=== PATIENT | male | born 1955 ===

== ENCOUNTER 2017-03-29 11:02 | Emergency (ER) | payer OTHER, MEDICAID ==
[2017-03-29 11:47] VITALS: BMI 38.3
[2017-03-29 11:52] VITALS: BP 187/130; PULSE 99; RESP 18; TEMP 97.5; O2SAT 96
--- NOTE | 2017-03-29 12:43 | ED PDOC ---
Arrival/HPI - General Chief Complaint: Suture/Staple Removal Time Seen by Provider: 03/29/17 11:55 Historian: Patient - History of Present Illness Narrative History of Present Illness (Text): 03/30/17 09:13 61yo male with PMHx of hypertension present to ED for suture removal from the left 4th finger. Patient denies redness, purulent discharge, pain to area. Past Medical History - Provider Review Nursing Documentation Reviewed: Yes - Infectious Disease Hx of Infectious Diseases: None - Cardiac Hx Cardiac Disorders: Yes Hx Hypertension: Yes - Pulmonary Hx Respiratory Disorders: No - Neurological Hx Neurological Disorder: No - HEENT Hx HEENT Disorder: Yes (EYE IRRITATION FROM DUST AT WORK) - Renal Hx Renal Disorder: No - Endocrine/Metabolic Hx Endocrine Disorders: No - Hematological/Oncological Hx Blood Disorders: No - Integumentary Hx Dermatological Disorder: No - Musculoskeletal/Rheumatological Hx Musculoskeletal Disorders: Yes (KNEE PAIN) - Gastrointestinal Hx Gastrointestinal Disorders: No - Genitourinary/Gynecological Hx Genitourinary Disorders: Yes Hx Prostate Problems: Yes (ELEVATED PSA/BPH) - Psychiatric Hx Psychophysiologic Disorder: No Hx Anxiety: No Hx Bipolar Disorder: No Hx Depression: No Hx Emotional Abuse: No Hx Hallucinations: No Hx Panic Disorder: No Hx Post Traumatic Stress Disorder: No Hx Psychosis: No Hx Physical Abuse: No Hx Schizophrenia: No Hx Sexual Abuse: No Hx Substance Use: No - Surgical History Hx Inguinal Hernia Repair: Yes (l) - Anesthesia Hx Anesthesia: Yes Hx Anesthesia Reactions: No Hx Malignant Hyperthermia: No - Suicidal Assessment Feels Threatened In Home Enviroment: No Family/Social History - Physician Review Nursing Documentation Reviewed: Yes Family/Social History: Unknown Family HX Smoking Status: Heavy Smoker > 10 Cigarettes Daily Hx Alcohol Use: Yes Hx Substance Use: No Hx Substance Use Treatment: No Allergies/Home Meds Allergies/Adverse Reactions: Allergies No Known Allergies Allergy (Verified 12/26/14 14:36) Home Medications: Home Meds Medication Instructions Recorded Confirmed Losartan/Hydrochlorothiazide 1 tab PO DAILY 03/29/17 03/29/17 [Losartan-Hctz 100-25 mg Tab] Review of Systems - Physician Review All systems were reviewed & negative as marked: Yes - Review of Systems Constitutional: Normal Eyes: Normal ENT: Normal Respiratory: Normal Cardiovascular: Normal Gastrointestinal: Normal Genitourinary Male: Normal Musculoskeletal: Normal Skin: Other (suture removal) Neurological: Normal Endocrine: Normal Hemo/Lymphatic: Normal Psychiatric: Normal Physical Exam Vital Signs Reviewed: Yes Vital Signs Temp Pulse Resp BP Pulse Ox 03/29/17 11:49 97.5 F L 99 H 18 187/130 H 96 Temperature: Afebrile Blood Pressure: Hypertensive Pulse: Regular Respiratory Rate: Normal Appearance: Positive for: Well-Appearing, Non-Toxic, Comfortable Pain Distress: None Mental Status: Positive for: Alert and Oriented X 3 - Systems Exam Head: Present: Atraumatic, Normocephalic Pupils: Present: PERRL Extroacular Muscles: Present: EOMI Conjunctiva: Present: Normal Mouth: Present: Moist Mucous Membranes Neck: Present: Normal Range of Motion Respiratory/Chest: Present: Clear to Auscultation, Good Air Exchange. No: Respiratory Distress, Accessory Muscle Use Cardiovascular: Present: Regular Rate and Rhythm, Normal S1, S2. No: Murmurs Abdomen: Present: Normal Bowel Sounds. No: Tenderness, Distention, Peritoneal Signs Back: Present: Normal Inspection Upper Extremity: Present: Normal Inspection. No: Cyanosis, Edema Lower Extremity: Present: Normal Inspection. No: Edema Neurological: Present: GCS=15, CN II-XII Intact, Speech Normal Skin: Present: Warm, Dry, Normal Color, Other (3sutures noted intact to left 4th distal finger. No erythema. No purulent discharge. No sign of infection noted). No: Rashes Psychiatric: Present: Alert, Oriented x 3, Normal Insight, Normal Concentration Medical Decision Making ED Course and Treatment: 03/30/17 09:15 Pt eloped from the ED before sutures could be removed and before re evaluation of his BP. Disposition/Present on Arrival - Present on Arrival Any Indicators Present on Arrival: No History of DVT/PE: No History of Uncontrolled Diabetes: No Urinary Catheter: No History of Decub. Ulcer: No History Surgical Site Infection Following: None - Disposition Have Diagnosis and Disposition been Completed?: Yes Diagnosis: Visit for suture removal Disposition: LEFT W/O TREATMENT - ER ONLY Disposition Time: 12:45 Condition: GOOD Discharge Instructions (ExitCare): Stitches Removal (ED) Additional Instructions: Follow up with your Doctor Return to ED for any new symptom Referrals: Marshall Robles APN [Primary Care Provider] - Follow up with primary Forms: [employer] (Zambian)
== END 2017-03-29 12:30 | disposition left against medical advice (07) ==
LOC: ED 11:02
DX: Z48.02 Encounter for removal of sutures (principal)

== ENCOUNTER 2017-08-17 09:29 | Inpatient (IN) | payer MEDICAID, OTHER ==
[2017-08-17 09:40] VITALS: BMI 40.9
[2017-08-17] MEDS ORDERED: Multivitamin (MVI) 10 ML, Thiamine 100 MG, Folic Acid 1 MG in Sodium Chloride 0.9% 1,00... IV ONE (09:47)
--- NOTE | 2017-08-17 09:58 | ED PDOC ---
Arrival/HPI - General Chief Complaint: Alcohol Ingestion Time Seen by Provider: 08/17/17 09:46 Historian: Patient, Spouse, Family (Niece) - History of Present Illness Narrative History of Present Illness (Text): 08/17/17 09:49 61 year old Peruvian-speaking male, with past medical history of hypertension ( noncompliant with medication) and psychiatric history of alcohol abuse, anxiety and depression, presents to the Emergency department complaining of nausea, vomiting, stomach burning and hematochezia since yesterday. Lorne at bedside is translating for patient. As per nisin, patient has been drinking alcohol since and is unable to stop. Niece states patient had similar prior episodes of alcohol abuse which followed months of sobriety until alcohol consumption again. As translated by lorne, patient informs bright red blood in his stool and increased somnolence. Upon questioning informs patient feels sick and shaky but no hallucination or DT when withdrawing alcohol. Patient currently denies any other somatic complaints. Patient denies any fever, chills, chest pain, shortness of breath, substance abuse or any other complaints. Patient presents to the Emergency department for medical evaluation. PMD: NO PMD (Visits [facility] in [place]) Time/Duration: < week Symptom Onset: Gradual Symptom Course: Unchanged Quality: Burning Activities at Onset: Light Context: Other (Drinking Alcohol) Past Medical History - Provider Review Nursing Documentation Reviewed: Yes - Infectious Disease Hx of Infectious Diseases: None - Cardiac Hx Cardiac Disorders: Yes Hx Hypertension: Yes - Pulmonary Hx Respiratory Disorders: No - Neurological Hx Neurological Disorder: No - HEENT Hx HEENT Disorder: Yes (EYE IRRITATION FROM DUST AT WORK) - Renal Hx Renal Disorder: No - Endocrine/Metabolic Hx Endocrine Disorders: No - Hematological/Oncological Hx Blood Disorders: No - Integumentary Hx Dermatological Disorder: No - Musculoskeletal/Rheumatological Hx Musculoskeletal Disorders: Yes (KNEE PAIN) - Gastrointestinal Hx Gastrointestinal Disorders: No - Genitourinary/Gynecological Hx Genitourinary Disorders: Yes Hx Prostate Problems: Yes (ELEVATED PSA/BPH) - Psychiatric Hx Psychophysiologic Disorder: No Hx Anxiety: No Hx Bipolar Disorder: No Hx Depression: No Hx Emotional Abuse: No Hx Hallucinations: No Hx Panic Disorder: No Hx Post Traumatic Stress Disorder: No Hx Psychosis: No Hx Physical Abuse: No Hx Schizophrenia: No Hx Sexual Abuse: No Hx Substance Use: No - Surgical History Hx Inguinal Hernia Repair: Yes (l) - Anesthesia Hx Anesthesia: Yes Hx Anesthesia Reactions: No Hx Malignant Hyperthermia: No - Suicidal Assessment Feels Threatened In Home Enviroment: No Family/Social History - Physician Review Nursing Documentation Reviewed: Yes Family/Social History: No Known Family HX Smoking Status: Heavy Smoker > 10 Cigarettes Daily Hx Alcohol Use: Yes Hx Substance Use: No Hx Substance Use Treatment: No Allergies/Home Meds Allergies/Adverse Reactions: Allergies No Known Allergies Allergy (Verified 12/26/14 14:36) Home Medications: Home Meds Medication Instructions Recorded Confirmed Losartan/Hydrochlorothiazide 1 tab PO DAILY 03/29/17 08/17/17 [Losartan-Hctz 100-25 mg Tab] Review of Systems - Physician Review All systems were reviewed & negative as marked: Yes - Review of Systems Constitutional: Normal. absent: Fevers Eyes: Normal ENT: Normal Respiratory: Normal. absent: SOB Cardiovascular: Normal. absent: Chest Pain Gastrointestinal: Abdominal Pain, Nausea, Vomiting, Hematochezia, Hematemesis Genitourinary Male: Normal Musculoskeletal: Normal Skin: Normal Neurological: Other (Intoxicated) Endocrine: Normal Hemo/Lymphatic: Normal Psychiatric: Anxiety, Depression Physical Exam Vital Signs Reviewed: Yes Vital Signs Temp Pulse Resp BP Pulse Ox 08/17/17 11:24 86 18 148/94 H 98 08/17/17 09:40 98.3 F 98 H 19 152/112 H 98 Temperature: Afebrile Blood Pressure: Hypertensive Pulse: Tachycardic Respiratory Rate: Normal Appearance: Positive for: Other (Strong Alcohol smell at breath. ) Pain Distress: None Mental Status: Positive for: Alert and Oriented X 3, other - Systems Exam Head: Present: Atraumatic, Normocephalic Pupils: Present: PERRL Extroacular Muscles: Present: EOMI Conjunctiva: Present: Normal Respiratory/Chest: Present: Clear to Auscultation, Good Air Exchange. No: Respiratory Distress, Accessory Muscle Use Cardiovascular: Present: Regular Rate and Rhythm, Normal S1, S2. No: Murmurs Abdomen: Present: Tenderness, Distention. No: Peritoneal Signs Upper Extremity: Present: Normal Inspection. No: Cyanosis, Edema Lower Extremity: Present: Normal Inspection. No: Edema Neurological: Present: GCS=15, CN II-XII Intact, Speech Normal Skin: Present: Warm, Dry, Normal Color. No: Rashes Psychiatric: Present: Alert, Oriented x 3, Intoxicated Medical Decision Making ED Course and Treatment: 08/17/17 9:47 Impression: 61 year old male presents to the Emergency department for nausea, hematemesis, hematochezia, stomach burning and alcohol intoxication. Plan: -- Blood Type and Screen -- Labs -- IV Fluids -- Urinalysis -- Reassess and disposition Progress Notes: 08/17/17 12:35 EKG: Ordered, reviewed, and independently interpreted the EKG. Rate : 83 BPM Rhythm : NSR Interpretation : LVH - Lab Interpretations Lab Results: 08/17/17 09:50 08/17/17 09:50 Lab Results 08/17/17 10:20: Urine Opiates Screen Negative, Urine Methadone Screen Negative, Ur Barbiturates Screen Negative, Ur Phencyclidine Scrn Negative, Ur Amphetamines Screen Negative, U Benzodiazepines Scrn Negative, U Oth Cocaine Metabols Negative, U Cannabinoids Screen Negative 08/17/17 10:20: Urine Color Yellow, Urine Appearance Clear, Urine pH 8.0, Ur Specific [place] 1.015, Urine Protein 30 H, Urine Glucose (UA) Negative, Urine Ketones Negative, Urine Blood Negative, Urine Nitrate Negative, Urine Bilirubin Negative, Urine Urobilinogen 1.0 H, Ur Leukocyte Esterase Negative, Urine RBC 0 - 2, Urine WBC 0 - 2, Ur Epithelial Cells None, Amorphous Sediment Few, Urine Bacteria Many, Urine Other Uyeast 08/17/17 09:50: Blood Type O POSITIVE, Antibody Screen Negative, BBK History Checked No verified bt 08/17/17 09:50: Alcohol, Quantitative 228 H 08/17/17 09:50: Sodium 145, Potassium 3.9, Chloride 104, Carbon Dioxide 26, Anion Gap 19, BUN 14, Creatinine 0.7 L, Est GFR ( Amer) > 60, Est GFR ( Non-Af Amer) > 60, Random Glucose 134 H, Calcium 7.9 L, Total Bilirubin 0.4, AST 40, ALT 41, Alkaline Phosphatase 65, Lactate Dehydrogenase 619, Total Creatine Kinase 206, Troponin I < 0.01 D, NT-Pro-B Natriuret Pep 141, Total Protein 6.4, Albumin 3.8, Globulin 2.6, Albumin/Globulin Ratio 1.5, Lipase 34 08/17/17 09:50: PT 12.8 H, INR 1.11 H 08/17/17 09:50: WBC 6.8 D, RBC 5.03, Hgb 14.8, Hct 43.8, MCV 87.1, MCH 29.4, MCHC 33.8, RDW 13.5, Plt Count 239, MPV 8.9, Gran % 67.9, Lymph % (Auto) 23.5, [place] % (Auto) 6.1 H, Eos % (Auto) 1.6, Baso % (Auto) 0.9, Gran # 4.64, Lymph # ( Auto) 1.6, [place] # (Auto) 0.4, Eos # (Auto) 0.1, Baso # (Auto) 0.06 - EKG Interpretation Interpreted by ED Physician: Yes Type: 12 lead EKG - Medication Orders Current Medication Orders: Enoxaparin Sodium (Lovenox) 40 mg SC DAILY DIANA PRN Reason: Protocol Folic Acid (Folic Acid) [address] [facility] Multivitamins/Vitamin C 10 ml/Thiamine HCl 100 mg/ Folic Acid 1 mg/ Sodium Chloride 1,011.2 mls @ 100 mls/hr IV .Q10H7M DIANA Lorazepam (Ativan) 1 mg PO Q4H PRN PRN Reason: Symptoms of alcohol withdrawl Multivitamins/Minerals (Therapeutic-M Tab) [address] [facility] Ondansetron HCl (Zofran Inj) 4 mg IVP Q6 PRN PRN Reason: Nausea/Vomiting Pantoprazole Sodium (Protonix Inj) [address] [facility] Thiamine HCl (Vitamin B1 Tab) [address] [facility] Discontinued Medications Al Hydrox/Mg Hydrox/Simethicone (Maalox Plus 30 Ml) 30 ml PO STAT STA Stop: 08/17/17 11:10 Last Admin: 08/17/17 12:11 Dose: 30 ml Belladonna/Phenobarbital ( Elixir) 5 ml PO STAT STA Stop: 08/17/17 11:10 Last Admin: 08/17/17 12:11 Dose: 5 ml Famotidine (Pepcid) 40 mg IVP STAT STA Stop: 08/17/17 11:26 Last Admin: 08/17/17 12:12 Dose: 40 mg IVP Administration Document 08/17/17 12:12 SS (Rec: 08/17/17 12:12 SS [id number]) Charges for Administration # of IVP Administrations 1 Multivitamins/Vitamin C 10 ml/Thiamine HCl 100 mg/ Folic Acid 1 mg/ Sodium Chloride 1,011.2 mls @ 1,000 mls/hr IV .Q1H1M ONE Stop: 08/17/17 10:47 Last Admin: 08/17/17 10:24 Dose: 1,000 mls/hr eMAR Start Stop Document 08/17/17 10:24 GMD (Rec: 08/17/17 10:25 GMD [id number]) Intravenous Solution Start Date 08/17/17 Start Time 10:24 End Date 08/17/17 End time 11:25 Total Infusion Time 61 Lidocaine HCl (Lidocaine 2% Viscous) 15 ml MM STAT STA Stop: 08/17/17 11:10 Last Admin: 08/17/17 12:11 Dose: 15 ml Lorazepam (Ativan) 2 mg IVP ONCE ONE PRN Reason: Protocol Stop: 08/17/17 11:26 Last Admin: 08/17/17 12:12 Dose: 2 mg IVP Administration Document 08/17/17 12:12 SS (Rec: 08/17/17 12:12 SS [id number]) Charges for Administration # of IVP Administrations 1 Pantoprazole Sodium (Protonix Inj) 80 mg IVP STAT STA Stop: 08/17/17 11:26 Last Admin: 08/17/17 12:11 Dose: 80 mg IVP Administration Document 08/17/17 12:11 SS (Rec: 08/17/17 12:11 SS [id number]) Charges for Administration # of IVP Administrations 1 - Scribe Statement The provider has reviewed the documentation as recorded by the Scribe Balbir Adams. All medical record entries made by the Scribe were at my direction and personally dictated by me. I have reviewed the chart and agree that the record accurately reflects my personal performance of the history, physical exam, medical decision making, and the department course for this patient. I have also personally directed, reviewed, and agree with the discharge instructions and disposition. Disposition/Present on Arrival - Present on Arrival Any Indicators Present on Arrival: No History of DVT/PE: No History of Uncontrolled Diabetes: No Urinary Catheter: No History of Decub. Ulcer: No History Surgical Site Infection Following: None - Disposition Have Diagnosis and Disposition been Completed?: Yes Diagnosis: Alcohol intoxication, Upper GI bleeding Disposition: HOSPITALIZED Disposition Time: 11:35 Patient Plan: Admission Patient Problems: Current Active Problems Problem Status Onset Alcohol intoxication Acute Upper GI bleeding Acute Condition: FAIR
[2017-08-17 10:22] LABS: BASO # 0.06 K/mm3 (0.0-2.0); BASO % 0.9 % (0.0-3.0); EOS # 0.1 (0.0-0.7); EOS % 1.6 % (1.5-5.0); GRAN # 4.64 (1.4-6.5); GRAN % 67.9 % (50.0-68.0); HEMOGLOBIN 14.8 g/dL (14.0-18.0); LYMPH # 1.6 (1.2-3.4); LYMPH % 23.5 % (22.0-35.0); MEAN CELL VOLUME 87.1 fl (80.0-105.0); MEAN CORPUSCULAR HEMOGLOBIN 29.4 pg (25.0-35.0); MEAN CORPUSCULAR HGB CONC 33.8 g/dl (31.0-37.0); MEAN PLATELET VOLUME 8.9 fl (7.0-11.0); MONO # 0.4 (0.1-0.6); MONO % 6.1 % (1.0-6.0); RBC 5.03 10^6/uL (3.5-6.1); RED CELL DISTRIBUTION WIDTH 13.5 % (11.5-14.5); WHITE BLOOD COUNT 6.8 10^3/ul (4.5-11.0)
[2017-08-17 10:29] LABS: INR 1.11 (0.93-1.08); PROTHROMBIN TIME 12.8 SECONDS (9.4-12.5)
[2017-08-17 10:30] LABS: ALB/GLOB RATIO 1.5 (1.1-1.8); ALBUMIN 3.8 g/dL (3.0-4.8); ALT/SGPT 41 U/L (7-56); AST/SGOT 40 U/L (17-59); BLOOD UREA NITROGEN 14 mg/dL (7-21); CALCIUM 7.9 mg/dL (8.4-10.5); GFR AFRICAN-AMERICAN > 60; GFR NON-AFRICAN AMERICAN > 60; LIPASE 34 U/L (23-300)
[2017-08-17 10:40] LABS: B-TYPE NATRIURETIC PEPTIDE 141 pg/mL (0-450); TROPONIN I < 0.01 ng/mL
[2017-08-17 10:50] LABS: URINE BILIRUBIN NEGATIVE (NEGATIVE); URINE BLOOD NEGATIVE (NEGATIVE); URINE GLUCOSE (UA) NEGATIVE (NEGATIVE); URINE LEUKOCYTE ESTERASE NEGATIVE Leu/uL (NEGATIVE); URINE PROTEIN 30 mg/dL (<30 mg/dL)
[2017-08-17 10:54] LABS: URINE APPEARANCE CLEAR (CLEAR); URINE COLOR YELLOW (YELLOW)
[2017-08-17 11:01] LABS: URINE BACTERIA MANY (NEG); URINE RBC 0 - 2 /hpf (0-2); URINE WBC 0 - 2 /hpf (0-6)
[2017-08-17 11:02] LABS: URINE AMORPHOUS SEDIMENT FEW
[2017-08-17 11:04] LABS: BARBITURATES, UR NEGATIVE (NEGATIVE); BENZODIAZEPINES, UR NEGATIVE (NEGATIVE); OPIATES, UR NEGATIVE (NEGATIVE); PHENCYCLIDINE, UR NEGATIVE (NEGATIVE)
[2017-08-17] MEDS ORDERED: Alum-Mag Hydrox-Simethicone Susp (30 mL) PO STA (11:09)
[2017-08-17] MEDS ORDERED: Atrop/Hyosc/Scopal/PB Elixir (120 ml) PO STA (11:09)
--- NOTE | 2017-08-17 12:26 | CP.PCM.HP ---
<KavithaHuey caceres - Last Filed: 08/17/17 14:09> History of Present Illness - History of Present Illness History of Present Illness: Medicine H&P for Dr. Arana cc: alcohol intoxication 61 year old Turkmen-speaking male with past medical history of HTN, history of alcohol abuse, anxiety/depression and noncompliance presents to the [facility] for alcohol intoxication. Patient is reporting nausea/vomiting, diarrhea, and abdominal pain since yesterday. He reports that he has been drinking alcohol since . Patient had similar episodes of alcohol abuse in the past. He has alternated between months of sobriety and episodes of alcohol consumption. He states that he had one occurrence of bright red blood in his stool. He also reports increased somnolence. Denies tremors and hallucinations. Patient currently rates pain as moderate. He describes it as constant burning in epigastrium. Denies any alleviating or aggravating factors. Patient denies recent illness or sick contacts. Admits to fever/chills, hematochezia, dizziness /lightheadedness, vertigo. Denies chest pain, SOB, palpitations, constipation, urinary symptoms and incontinence. PMD: [facility] PMH: HTN, history of alcohol abuse, anxiety/depression, noncompliance, BPH Meds: Name unknown but takes HTN med Allergy: NKDA PSH: umbilical hernia repair, Left inguinal hernia repair FH: non-contributory Social: current smoker - 1 pack/day for years, heavy EtOH binge drinking minimum of 12 beers, denies illicit drug drug Present on Admission - Present on Admission Any Indicators Present on Admission: No History of DVT/PE: No History of Uncontrolled Diabetes: No Urinary Catheter: No Decubitus Ulcer Present: No History Surgical Site Infection Following: None Review of Systems - Review of Systems All systems: reviewed and no additional remarkable complaints except (as per HPI ) Past Patient History - Infectious Disease Hx of Infectious Diseases: None - Past Medical History & Family History Past Medical History?: Yes - Past Social History Smoking Status: Heavy Smoker > 10 Cigarettes Daily - CARDIAC Hx Cardiac Disorders: Yes Hx Hypertension: Yes - PULMONARY Hx Respiratory Disorders: No - NEUROLOGICAL Hx Neurological Disorder: No - HEENT Hx HEENT Problems: Yes (EYE IRRITATION FROM DUST AT WORK) - RENAL Hx Chronic Kidney Disease: No - ENDOCRINE/METABOLIC Hx Endocrine Disorders: No - HEMATOLOGICAL/ONCOLOGICAL Hx Blood Disorders: No - INTEGUMENTARY Hx Dermatological Problems: No - MUSCULOSKELETAL/RHEUMATOLOGICAL Hx Musculoskeletal Disorders: Yes (KNEE PAIN) - GASTROINTESTINAL Hx Gastrointestinal Disorders: No - GENITOURINARY/GYNECOLOGICAL Hx Genitourinary Disorders: Yes Hx Prostate Problems: Yes (ELEVATED PSA/BPH) - PSYCHIATRIC Hx Psychophysiologic Disorder: No Hx Anxiety: No Hx Bipolar Disorder: No Hx Depression: No Hx Emotional Abuse: No Hx Hallucinations: No Hx Panic Symptoms: No Hx Post Traumatic Stress Disorder: No Hx Psychosis: No Hx Physical Abuse: No Hx Schizophrenia: No Hx Sexual Abuse: No Hx Substance Use: No - SURGICAL HISTORY Hx Surgeries: Yes Hx Herniorrhaphy: Yes (BILATERAL ING.HERNIORRAPHY) - ANESTHESIA Hx Anesthesia: Yes Hx Anesthesia Reactions: No Hx Malignant Hyperthermia: No Meds Allergies/Adverse Reactions: Allergies Allergy/AdvReac Type Severity Reaction Status Date / Time No Known Allergies Allergy Verified 12/26/14 14:36 Physical Exam - Constitutional Appears: Other (lethargic) - Head Exam Head Exam: ATRAUMATIC, NORMOCEPHALIC - Eye Exam Eye Exam: EOMI, Normal appearance Pupil Exam: PERRL - ENT Exam ENT Exam: Mucous Membranes Dry - Neck Exam Neck exam: Positive for: Normal Inspection - Respiratory Exam Respiratory Exam: NORMAL BREATHING PATTERN - Cardiovascular Exam Cardiovascular Exam: REGULAR RHYTHM, +S1, +S2 - GI/Abdominal Exam GI & Abdominal Exam: Normal Bowel Sounds, Soft, Tenderness (epigastric). absent : Distended, Firm, Guarding, Hernia, Rebound, Rigid - Extremities Exam Extremities exam: Positive for: normal capillary refill, pedal pulses present. Negative for: calf tenderness - Back Exam Back exam: absent: CVA tenderness (L), CVA tenderness (R) - Neurological Exam Neurological exam: Alert - Psychiatric Exam Psychiatric exam: Flat Affect - Skin Skin Exam: Dry, Intact, Normal Color, Warm Results - Vital Signs Recent Vital Signs: Last Vital Signs Temp 98.3 F 08/17/17 09:40 Pulse 86 08/17/17 11:24 Resp 18 08/17/17 11:24 BP 148/94 H 08/17/17 11:24 Pulse Ox 98 08/17/17 11:24 - Labs Result Diagrams: 08/17/17 09:50 08/17/17 09:50 Assessment & Plan - Assessment and Plan (Free Text) Assessment: 61 year old Turkmen-speaking male with past medical history of HTN, history of alcohol abuse, anxiety/depression and noncompliance presents to the [facility] for alcohol intoxication. Plan: 1. Alcohol intoxication/withdrawal -Remote telemetry -CIWA protocol -Aspiration protocol -Seizure protocol -Neurochecks -Banana bag 100 cc/hr -Ativan 2 mg IVP Q4H PRN -Intake and Output -Folic acid -Thiamine -MVM 2. HTN Monitor BP will start med if persistently high 3. Abdominal pain gastritis vs PUD Protonix 40 mg Q12H Serial abd exams Monitor bowel function 4. Hematochezia stool occult test Protonix Monitor 5. Prophylactic Measure Protonix Lovenox CLD Discussed with Dr. Sumit Kaplan PGY1 <Santo Arana - Last Filed: 08/17/17 16:35> Results - Vital Signs Recent Vital Signs: Last Vital Signs Temp 98.3 F 08/17/17 12:35 Pulse 79 08/17/17 12:56 Resp 18 08/17/17 12:56 BP 145/92 H 08/17/17 12:56 Pulse Ox 98 08/17/17 12:56 - Labs Result Diagrams: 08/17/17 09:50 08/17/17 09:50 Labs: Laboratory Results - last 24 hr 08/17/17 12:30 Blood Type Confirm O POSITIVE Attending/Attestation - Attestation I have personally seen and examined this patient.: Yes I have fully participated in the care of the patient.: Yes I have reviewed all pertinent clinical information: Yes Notes (Text): Patient seen and examined Agree with above Patient admitted for etoh intoxication c/o abdominal pain most likely attributed to etoh gastritits IVF hydration with bananabag infusion, Monitor for withdrawal symptoms, CIWA protocol Questionable hematochezia, will send stool for occult blood. Start Protonix Clear liquids - advance as tolerated Sister at bedside reports pt drinks more than he says he does.
[2017-08-17] MEDS ORDERED: Multivitamin (MVI) 10 ML, Thiamine 100 MG, Folic Acid 1 MG in Sodium Chloride 0.9% 1,00... IV SCH (12:30)
[2017-08-17] MEDS ORDERED: Enoxaparin 40 mg Syringe SC SCH (12:30)
[2017-08-17] MEDS ORDERED: Pneumococcal 23-Valent Vaccine IM ONE (13:05)
[2017-08-17 17:56] VITALS: RESP 20
[2017-08-18 06:46] LABS: BASO # 0.04 K/mm3 (0.0-2.0); BASO % 0.4 % (0.0-3.0); EOS # 0.4 (0.0-0.7); EOS % 3.6 % (1.5-5.0); GRAN # 6.94 (1.4-6.5); GRAN % 69.9 % (50.0-68.0); HEMOGLOBIN 15.5 g/dL (14.0-18.0); LYMPH # 1.8 (1.2-3.4); LYMPH % 18.4 % (22.0-35.0); MEAN CORPUSCULAR HEMOGLOBIN 29.6 pg (25.0-35.0); MEAN PLATELET VOLUME 9.3 fl (7.0-11.0); MONO # 0.8 (0.1-0.6); MONO % 7.7 % (1.0-6.0); RBC 5.24 10^6/uL (3.5-6.1); RED CELL DISTRIBUTION WIDTH 13.3 % (11.5-14.5); WHITE BLOOD COUNT 9.9 10^3/ul (4.5-11.0)
[2017-08-18 07:12] LABS: PROTHROMBIN TIME 11.8 SECONDS (9.4-12.5)
[2017-08-18 07:13] LABS: INR 1.03 (0.93-1.08); PARTIAL THROMBOPLASTIN TIME 25.4 Seconds (25.1-36.5)
[2017-08-18 07:28] LABS: ALB/GLOB RATIO 1.5 (1.1-1.8); ALT/SGPT 56 U/L (7-56); AST/SGOT 55 U/L (17-59); BLOOD UREA NITROGEN 12 mg/dL (7-21); CALCIUM 8.3 mg/dL (8.4-10.5); GFR AFRICAN-AMERICAN > 60; GFR NON-AFRICAN AMERICAN > 60
[2017-08-18] MEDS ORDERED: Multivitamin (MVI) 10 ML, Thiamine 100 MG, Folic Acid 1 MG in Sodium Chloride 0.9% 1,00... IV SCH (08:43)
--- NOTE | 2017-08-18 09:20 | CARD ---
APPROVED REPORT EKG Measurement Heart [id number] <Conclusion> Normal sinus rhythm Minimal voltage criteria for LVH, may be normal variant
[2017-08-18] MEDS ORDERED: Multivitamin With Minerals Tab PO SCH (10:00)
--- NOTE | 2017-08-18 11:41 | CP.PCM.PN ---
<Huey Kaplan - Last Filed: 08/18/17 12:22> Subjective - Date & Time of Evaluation Date of Evaluation: 08/18/17 Time of Evaluation: 07:30 - Subjective Subjective: Medicine Note for Dr. Britton Patient seen and examined at bedside. No acute event overnight. Patient required ativan multiple times overnight due to [facility] protocol. Patient is diaphoretic this morning with mild tremors. He denies pain. Denies fever/chills and nausea/vomiting. Objective - Vital Signs/Intake and Output Vital Signs (last 24 hours): Temp Pulse Resp BP Pulse Ox 98.8 F 110 H 20 174/102 H 98 08/18/17 08:18 08/18/17 10:43 08/18/17 08:18 08/18/17 10:43 08/18/17 08:18 Intake and Output: 08/18/17 08/18/17 06:59 18:59 Intake Total 660 Output Total 775 Balance -115 - Medications Medications: Current Medications Chlordiazepoxide (Librium) 25 mg PO Q8 DIANA PRN Reason: Protocol Last Admin: 08/18/17 09:05 Dose: 25 mg Enoxaparin Sodium (Lovenox) 40 mg SC DAILY [facility] PRN Reason: Protocol Last Admin: 08/18/17 09:06 Dose: 40 mg Folic Acid (Folic Acid) 1 mg PO DAILY [facility] Last Admin: 08/18/17 09:06 Dose: 1 mg Lisinopril (Zestril) 10 mg PO DAILY [facility] Last Admin: 08/18/17 10:43 Dose: 10 mg Lorazepam (Ativan) 2 mg IVP Q4H PRN; Protocol PRN Reason: etoh withdrawal Last Admin: 08/18/17 06:31 Dose: 2 mg Losartan Potassium (Cozaar) 25 mg PO DAILY [facility] Last Admin: 08/18/17 09:05 Dose: 25 mg Multivitamins/Minerals (Therapeutic-M Tab) 1 tab PO DAILY [facility] Last Admin: 08/18/17 09:04 Dose: 1 tab Ondansetron HCl (Zofran Inj) 4 mg IVP Q6 PRN PRN Reason: Nausea/Vomiting Last Admin: 08/18/17 01:26 Dose: 4 mg Pantoprazole Sodium (Protonix Inj) 40 mg IVP BID [facility] Last Admin: 08/18/17 09:04 Dose: 40 mg Thiamine HCl (Vitamin B1 Tab) 100 mg PO DAILY DIANA Last Admin: 08/18/17 09:06 Dose: 100 mg - Labs Labs: 08/18/17 06:00 08/18/17 06:00 PT 11.8 SECONDS (9.4-12.5) 08/18/17 06:00 INR 1.03 (0.93-1.08) 08/18/17 06:00 APTT 25.4 Seconds (25.1-36.5) 08/18/17 06:00 - Constitutional Appears: No Acute Distress, Other (diaphoretic) - Head Exam Head Exam: ATRAUMATIC, NORMOCEPHALIC - Eye Exam Eye Exam: EOMI, Normal appearance Pupil Exam: PERRL - ENT Exam ENT Exam: Mucous Membranes Moist - Respiratory Exam Respiratory Exam: Clear to Ausculation Bilateral, NORMAL BREATHING PATTERN - Cardiovascular Exam Cardiovascular Exam: Tachycardia - GI/Abdominal Exam GI & Abdominal Exam: Soft, Normal Bowel Sounds. absent: Tenderness - Extremities Exam Extremities Exam: Normal Capillary Refill - Back Exam Back Exam: absent: CVA tenderness (L), CVA tenderness (R) - Neurological Exam Neurological Exam: Alert, Awake, Oriented x3 Additional comments: mild tremor - Psychiatric Exam Psychiatric exam: Normal Affect, Normal Mood - Skin Skin Exam: Diaphoretic, Intact, Warm Assessment and Plan - Assessment and Plan (Free Text) Assessment: 61 year old Ecuadorean-speaking male with past medical history of HTN, history of alcohol abuse, anxiety/depression and noncompliance presents to the [facility] for alcohol intoxication. Plan: 1. Alcohol intoxication/withdrawal -Remote telemetry -CIWA protocol -Aspiration protocol -Seizure protocol -Neurochecks -Banana bag 150 cc/hr -Librium 25 mg PO Q6H -Clonidine 0.1 Q6H PRN -Ativan 2 mg IVP Q4H PRN -Intake and Output -Folic acid -Thiamine -MVM 2. HTN Lisinopril 10mg PO daily Clonidine 0.1 Q6H PRN Monitor BP will start med if persistently high 3. Abdominal pain; Resolved gastritis vs PUD Protonix 40 mg Q12H Serial abd exams Monitor bowel function Lipase normal 4. Hematochezia stool occult test Protonix Monitor 5. Prophylactic Measure Protonix Lovenox CLD Discussed with Dr. Tobi Kaplan PGY1 <Cori Britton B - Last Filed: 08/18/17 16:21> Objective - Vital Signs/Intake and Output Vital Signs (last 24 hours): Temp Pulse Resp BP Pulse Ox 98.8 F 105 H 20 179/92 H 98 08/18/17 08:18 08/18/17 15:40 08/18/17 08:18 08/18/17 15:40 08/18/17 08:18 Intake and Output: 08/18/17 08/18/17 06:59 18:59 Intake Total 660 925 Output Total 775 Balance -115 925 - Medications Medications: Current Medications Chlordiazepoxide (Librium) 25 mg PO Q8 DIANA PRN Reason: Protocol Last Admin: 08/18/17 13:35 Dose: 25 mg Clonidine HCl (Catapres) 0.1 mg PO Q6H PRN PRN Reason: Systolic Blood Pressure Last Admin: 08/18/17 12:30 Dose: 0.1 mg Enoxaparin Sodium (Lovenox) 40 mg SC DAILY [facility] PRN Reason: Protocol Last Admin: 08/18/17 09:06 Dose: 40 mg Folic Acid (Folic Acid) 1 mg PO DAILY [facility] Last Admin: 08/18/17 09:06 Dose: 1 mg Lisinopril (Zestril) 10 mg PO DAILY [facility] Last Admin: 08/18/17 10:43 Dose: 10 mg Lorazepam (Ativan) 2 mg IVP Q4H PRN; Protocol PRN Reason: etoh withdrawal Last Admin: 08/18/17 11:46 Dose: 2 mg Losartan Potassium (Cozaar) 25 mg PO DAILY [facility] Last Admin: 08/18/17 09:05 Dose: 25 mg Multivitamins/Minerals (Therapeutic-M Tab) 1 tab PO DAILY [facility] Last Admin: 08/18/17 09:04 Dose: 1 tab Ondansetron HCl (Zofran Inj) 4 mg IVP Q6 PRN PRN Reason: Nausea/Vomiting Last Admin: 08/18/17 01:26 Dose: 4 mg Pantoprazole Sodium (Protonix Ec Tab) 40 mg PO BID [facility] Thiamine HCl (Vitamin B1 Tab) 100 mg PO DAILY [facility] Last Admin: 08/18/17 09:06 Dose: 100 mg - Labs Labs: 08/18/17 06:00 05/24/18 06:00 PT 11.8 SECONDS (9.4-12.5) 08/18/17 06:00 INR 1.03 (0.93-1.08) 08/18/17 06:00 APTT 25.4 Seconds (25.1-36.5) 08/18/17 06:00 Attending/Attestation - Attestation I have personally seen and examined this patient.: Yes I have fully participated in the care of the patient.: Yes I have reviewed all pertinent clinical information, including history, physical exam and plan: Yes Notes (Text): I have seen and examined the patient at bedside. Agree with the above note with the following additions/ exceptions: Briefly this is 61 year old Ecuadorean- speaking male with past medical history of HTN, history of alcohol abuse, anxiety/depression and noncompliance who came for management of alcohol intoxication. Continue CIWA protocol. Continue librium taper. Will closely monitor BP and electrolytes. Start clonidine prn.
[2017-08-18 17:04] VITALS: BP 151/95; PULSE 114; TEMP 98.9; O2SAT 95
[2017-08-18] MEDS ORDERED: Pantoprazole 40 mg EC Tab PO SCH (18:00)
--- NOTE | 2017-08-19 11:38 | CP.PCM.DIS ---
Provider - Provider Date of Admission: 08/17/17 11:36 Attending physician: Cori Britton MD Time Spent in preparation of Discharge (in minutes): 30 Hospital Course - Lab Results Lab Results: Most Recent Lab Values WBC 9.9 10^3/ul (4.5-11.0) D 08/18/17 06:00 RBC 5.24 10^6/uL (3.5-6.1) 08/18/17 06:00 Hgb 15.5 g/dL (14.0-18.0) 08/18/17 06:00 Hct 45.6 % (42.0-52.0) 08/18/17 06:00 MCV 87.0 fl (80.0-105.0) 08/18/17 06:00 MCH 29.6 pg (25.0-35.0) 08/18/17 06:00 MCHC 34.0 g/dl (31.0-37.0) 08/18/17 06:00 RDW 13.3 % (11.5-14.5) 08/18/17 06:00 Plt Count 240 10^3/uL (120.0-450.0) 08/18/17 06:00 MPV 9.3 fl (7.0-11.0) 08/18/17 06:00 Gran % 69.9 % (50.0-68.0) H 08/18/17 06:00 Lymph % (Auto) 18.4 % (22.0-35.0) L 08/18/17 06:00 [place] % (Auto) 7.7 % (1.0-6.0) H 08/18/17 06:00 Eos % (Auto) 3.6 % (1.5-5.0) 08/18/17 06:00 Baso % (Auto) 0.4 % (0.0-3.0) 08/18/17 06:00 Gran # 6.94 (1.4-6.5) H 08/18/17 06:00 Lymph # (Auto) 1.8 (1.2-3.4) 08/18/17 06:00 [place] # (Auto) 0.8 (0.1-0.6) H 08/18/17 06:00 Eos # (Auto) 0.4 (0.0-0.7) 08/18/17 06:00 Baso # (Auto) 0.04 K/mm3 (0.0-2.0) 08/18/17 06:00 PT 11.8 SECONDS (9.4-12.5) 08/18/17 06:00 INR 1.03 (0.93-1.08) 08/18/17 06:00 APTT 25.4 Seconds (25.1-36.5) 08/18/17 06:00 Sodium 142 mmol/L (132-148) 08/18/17 06:00 Potassium 4.0 mmol/L (3.6-5.0) 08/18/17 06:00 Chloride 104 mmol/L (98-107) 08/18/17 06:00 Carbon Dioxide 26 mmol/L (21-33) 08/18/17 06:00 Anion Gap 16 (10-20) 08/18/17 06:00 BUN 12 mg/dL (7-21) 08/18/17 06:00 Creatinine 0.8 mg/dl (0.8-1.5) 08/18/17 06:00 Est GFR ( Amer) > 60 08/18/17 06:00 Est GFR (Non-Af Amer) > 60 08/18/17 06:00 POC Glucose (mg/dL) 124 mg/dL (65-110) H 08/17/17 10:05 Random Glucose 98 mg/dL (70-110) 08/18/17 06:00 Calcium 8.3 mg/dL (8.4-10.5) L 08/18/17 06:00 Phosphorus 3.0 mg/dL (2.5-4.5) 08/18/17 06:00 Magnesium 2.2 mg/dL (1.7-2.2) 08/18/17 06:00 Total Bilirubin 1.0 mg/dL (0.2-1.3) 08/18/17 06:00 AST 55 U/L (17-59) 08/18/17 06:00 ALT 56 U/L (7-56) 08/18/17 06:00 Alkaline Phosphatase 74 U/L (38-126) 08/18/17 06:00 Lactate Dehydrogenase 619 U/L (333-699) 05/23/18 09:50 Total Creatine Kinase 206 U/L (35-230) 08/17/17 09:50 Troponin I < 0.01 ng/mL D 08/17/17 09:50 NT-Pro-B Natriuret Pep 141 pg/mL (0-450) 08/17/17 09:50 Total Protein 6.6 g/dL (5.8-8.3) 08/18/17 06:00 Albumin 4.0 g/dL (3.0-4.8) 08/18/17 06:00 Globulin 2.6 gm/dL 08/18/17 06:00 Albumin/Globulin Ratio 1.5 (1.1-1.8) 08/18/17 06:00 Lipase 34 U/L (23-300) 08/17/17 09:50 Urine Color Yellow (YELLOW) 08/17/17 10:20 Urine Appearance Clear (CLEAR) 08/17/17 10:20 Urine pH 8.0 (4.7-8.0) 08/17/17 10:20 Ur Specific [place] 1.015 (1.005-1.035) 08/17/17 10:20 Urine Protein 30 mg/dL (<30 mg/dL) H 08/17/17 10:20 Urine Glucose (UA) Negative mg/dL (NEGATIVE) 08/17/17 10:20 Urine Ketones Negative mg/dL (NEGATIVE) 08/17/17 10:20 Urine Blood Negative (NEGATIVE) 08/17/17 10:20 Urine Nitrate Negative (NEGATIVE) 08/17/17 10:20 Urine Bilirubin Negative (NEGATIVE) 08/17/17 10:20 Urine Urobilinogen 1.0 E.U./dL (<1 E.U./dL) H 08/17/17 10:20 Ur Leukocyte Esterase Negative Jose/uL (NEGATIVE) 08/17/17 10:20 Urine RBC 0 - 2 /hpf (0-2) 08/17/17 10:20 Urine WBC 0 - 2 /hpf (0-6) 08/17/17 10:20 Ur Epithelial Cells None /hpf (0-5) 08/17/17 10:20 Amorphous Sediment Few 08/17/17 10:20 Urine Bacteria Many (NEG) 08/17/17 10:20 Urine Other Uyeast 08/17/17 10:20 Urine Opiates Screen Negative (NEGATIVE) 08/17/17 10:20 Urine Methadone Screen Negative (NEGATIVE) 08/17/17 10:20 Ur Barbiturates Screen Negative (NEGATIVE) 08/17/17 10:20 Ur Phencyclidine Scrn Negative (NEGATIVE) 08/17/17 10:20 Ur Amphetamines Screen Negative (NEGATIVE) 08/17/17 10:20 U Benzodiazepines Scrn Negative (NEGATIVE) 08/17/17 10:20 U Oth Cocaine Metabols Negative (NEGATIVE) 08/17/17 10:20 U Cannabinoids Screen Negative (NEGATIVE) 08/17/17 10:20 Alcohol, Quantitative 228 mg/dL (0-10) H 08/17/17 09:50 Blood Type O POSITIVE 08/17/17 09:50 Blood Type Confirm O POSITIVE 08/17/17 12:30 Antibody Screen Negative 08/17/17 09:50 BBK History Checked No verified bt 08/17/17 09:50 - Hospital Course Hospital Course: Patient is a 61yo Hebrew-speaking male with history of hypertension, alcohol abuse, anxiety/depression that presented to [facility] with alcohol intoxication. On presentation he had reported nausea, non-bilious non-bloody vomiting, diarrhea and epigastric abdominal pain. He admitted to drinking excessive amounts of alcohol prior to his admission and had similar instances in the past. He reported that he would typically have months of sobriety with episodes of binge drinking in between. On admission, he was admitted to remote telemetry, started on CIWA protocol with seizure and aspiration precautions. He was given librium and ativan for signs/symptoms of alcohol withdrawal as well as treated for hypertension. He was also started on multivitamins, folic acid and thiamine. Lipase was within normal limits. Although improved since admission, he had symptoms of alcohol withdrawal and was advised to remain in the hospital for treatment of alcohol withdrawal. At approximately 7pm, patient reported that he wishes to leave. Despite attempts to dissuade him and explaining the risks/ benefits of leaving against medical advice, patient left [facility]. Physical exam: Please see note from 08/18/17 for physical examination Discharge Exam - Head Exam Head Exam: ATRAUMATIC, NORMOCEPHALIC Discharge Plan - Follow Up Plan Condition: FAIR Disposition: AGAINST MEDICAL ADVICE
[2017-08-20] MEDS ORDERED: Multivitamin (MVI) 10 ML, Thiamine 100 MG, Folic Acid 1 MG in Sodium Chloride 0.9% 1,00... IV ONE (17:55)
== END 2017-08-18 19:49 | disposition left against medical advice (07) | DRG 749 ==
LOC: ED 09:29 → ERH 11:36 → 3RSO 15:47
PROVIDERS: ADMIT Internal Medicine; ATTEND Hospitalist
DX: F10.129 Alcohol abuse with intoxication, unspecified (principal); K92.1 Melena; I10 Essential (primary) hypertension; N40.0 Benign prostatic hyperplasia without lower urinary tract symptoms; K29.20 Alcoholic gastritis without bleeding; K27.9 Peptic ulcer, site unspecified, unspecified as acute or chronic, without hemorrhage or perforation; F17.210 Nicotine dependence, cigarettes, uncomplicated; F32.9 Major depressive disorder, single episode, unspecified; F41.9 Anxiety disorder, unspecified; Y90.8 Blood alcohol level of 240 mg/100 ml or more; Z91.19 Patient's noncompliance with other medical treatment and regimen; Z91.14 Patient's other noncompliance with medication regimen

== ENCOUNTER 2017-08-21 09:40 | Emergency (ER) | payer OTHER ==
[2017-08-21 09:50] VITALS: BMI 40.6
--- NOTE | 2017-08-21 10:46 | ED PDOC ---
Arrival/HPI - General Chief Complaint: Abnormal Skin Integrity Time Seen by Provider: 08/21/17 10:42 Historian: Patient - History of Present Illness Narrative History of Present Illness (Text): 08/21/17 10:42 This 61 yo male presents to this ED requesting antibiotic for upper lip infection. Patient stated he tripped and hit his mouth again his bathroom sink x 3 days ago. Patient noted inner upper lip laceration. Patient denies FB within lip. Denies other somatic complains. Tetanus <1 year Time/Duration: Other (see hpi) Context: Home Past Medical History - Provider Review Nursing Documentation Reviewed: Yes - Infectious Disease Hx of Infectious Diseases: None - Cardiac Hx Cardiac Disorders: Yes Hx Hypertension: Yes - Pulmonary Hx Respiratory Disorders: No - Neurological Hx Neurological Disorder: No - HEENT Hx HEENT Disorder: Yes (EYE IRRITATION FROM DUST AT WORK) - Renal Hx Renal Disorder: No - Endocrine/Metabolic Hx Endocrine Disorders: No - Hematological/Oncological Hx Blood Disorders: No - Integumentary Hx Dermatological Disorder: No - Musculoskeletal/Rheumatological Hx Musculoskeletal Disorders: Yes (KNEE PAIN) - Gastrointestinal Hx Gastrointestinal Disorders: No - Genitourinary/Gynecological Hx Genitourinary Disorders: Yes Hx Prostate Problems: Yes (ELEVATED PSA/BPH) - Psychiatric Hx Psychophysiologic Disorder: No Hx Anxiety: No Hx Bipolar Disorder: No Hx Depression: No Hx Emotional Abuse: No Hx Hallucinations: No Hx Panic Disorder: No Hx Post Traumatic Stress Disorder: No Hx Psychosis: No Hx Physical Abuse: No Hx Schizophrenia: No Hx Sexual Abuse: No Hx Substance Use: No - Surgical History Hx Inguinal Hernia Repair: Yes (l) - Anesthesia Hx Anesthesia: Yes Hx Anesthesia Reactions: No Hx Malignant Hyperthermia: No - Suicidal Assessment Feels Threatened In Home Enviroment: No Family/Social History - Physician Review Nursing Documentation Reviewed: Yes Family/Social History: Other (nocontributory) Smoking Status: Heavy Smoker > 10 Cigarettes Daily Hx Alcohol Use: Yes Hx Substance Use: No Hx Substance Use Treatment: No Allergies/Home Meds Allergies/Adverse Reactions: Allergies No Known Allergies Allergy (Verified 12/26/14 14:36) Home Medications: Home Meds Medication Instructions Recorded Confirmed Losartan/Hydrochlorothiazide 1 tab PO DAILY 03/29/17 08/17/17 [Losartan-Hctz 100-25 mg Tab] Review of Systems - Review of Systems Constitutional: Normal. absent: Fatigue, Weight Change, Fevers Eyes: Normal ENT: Other (see hpi) Respiratory: Normal Cardiovascular: Normal Gastrointestinal: Normal Genitourinary Male: Normal Musculoskeletal: Normal Skin: Normal Neurological: Normal Endocrine: Normal Hemo/Lymphatic: Normal Psychiatric: Normal Physical Exam Vital Signs Temp Pulse Resp BP Pulse Ox 08/21/17 09:43 99.4 F 98 H 20 155/103 H 96 Temperature: Afebrile Blood Pressure: Normal Pulse: Regular Respiratory Rate: Normal Appearance: Positive for: Well-Appearing, Non-Toxic, Comfortable Pain Distress: None Mental Status: Positive for: Alert and Oriented X 3 - Systems Exam Head: Present: Atraumatic, Normocephalic, Other (no raccoon sign. No piper sign) Pupils: Present: PERRL, Other (no hyphema) Extroacular Muscles: Present: EOMI. No: Entrapment Conjunctiva: Present: Normal Ears: Present: Normal, NORMAL TM, Normal Canal, Other (no hemotymapnum). No: Erythema, TM Bulging, Fluid, TM Perf Mouth: Present: Moist Mucous Membranes, Normal Tounge, Normal Teeth, Other ((+) healing inner upper lip laceration, mils swelling. No fluctuance, no drainage. No facial erythema. No dental or gum abscess. No dental tenderness). No: Drooling, Trismus Pharnyx: Present: Normal. No: ERYTHEMA, EXUDATE, TONSILS ENLARGED Neck: Present: Normal Range of Motion Respiratory/Chest: Present: Clear to Auscultation, Good Air Exchange. No: Respiratory Distress, Accessory Muscle Use, Wheezes, Retracting, Rhonchi, Tachypneic Cardiovascular: Present: Regular Rate and Rhythm, Normal S1, S2. No: Murmurs Upper Extremity: Present: Normal Inspection, Normal ROM Lower Extremity: Present: Normal Inspection, Normal ROM Neurological: Present: GCS=15, CN II-XII Intact, Speech Normal, Motor Func Grossly Intact, Normal Sensory Function, Normal Cerebellar Funct, Gait Normal, Memory Normal Skin: Present: Warm, Dry, Normal Color. No: Rashes Psychiatric: Present: Alert, Oriented x 3, Normal [facility]ight Medical Decision Making ED Course and Treatment: 08/21/17 10:51 Re-evaluation. Patient feels better. Discussed results and plan with patient who expresses understanding. All questions answered and there is agreement with the plan to discharge home with instructions. Patient stable for discharge. Return if symptoms persist or worsen Re-evaluation Time: 10:51 Reassessment Condition: Re-examined, Unchanged Disposition/Present on Arrival - Present on Arrival Any Indicators Present on Arrival: No History of DVT/PE: No History of Uncontrolled Diabetes: No Urinary Catheter: No History of Decub. Ulcer: No History Surgical Site Infection Following: None - Disposition Have Diagnosis and Disposition been Completed?: Yes Diagnosis: Infected wound, Hypertension Disposition: HOME/ ROUTINE Disposition Time: 10:52 Patient Plan: Discharge Condition: GOOD Discharge Instructions (ExitCare): High Blood Pressure (DC), Low Salt Diet Print Language: [place] Additional Instructions: Llame al doctor the la clinica para seguimiento medico. [place] la medicina com esta prescrita. Limpie la herida con agua y jabon. Regrese a la emergencia si infection empeora. limpie pina dientes dimitrios, y utilize el floss Prescriptions: Cephalexin [Keflex] 500 mg PO QID #28 capsule Chlorhexidine 0.12% [Peridex] 15 ml PO BID #1 bottle Sulfamethoxazole/Trimethoprim [Bactrim DS 800 mg-160 mg] 1 tab PO BID #14 tab Referrals: [facility] [Outside] - Follow up with primary [facility] [Outside] - Follow up with primary
[2017-08-21 11:15] VITALS: BP 148/95; PULSE 78; RESP 18; TEMP 98.9; O2SAT 99
== END 2017-08-21 11:15 | disposition home or self-care (01) ==
LOC: ED 09:40
DX: L08.9 Local infection of the skin and subcutaneous tissue, unspecified (principal); I10 Essential (primary) hypertension; F17.210 Nicotine dependence, cigarettes, uncomplicated

== ENCOUNTER 2018-01-23 17:34 | Emergency (ER) | payer SELFPAY ==
[2018-01-23 17:35] VITALS: BMI 40.6
[2018-01-23 18:18] LABS: BASO # 0.02 K/mm3 (0.0-2.0); BASO % 0.3 % (0.0-3.0); EOS # 0.2 (0.0-0.7); EOS % 2.5 % (1.5-5.0); GRAN # 3.88 (1.4-6.5); GRAN % 56.1 % (50.0-68.0); LYMPH # 2.5 (1.2-3.4); LYMPH % 35.9 % (22.0-35.0); MEAN CELL VOLUME 90.4 fl (80.0-105.0); MEAN CORPUSCULAR HEMOGLOBIN 30.7 pg (25.0-35.0); MEAN PLATELET VOLUME 9.1 fl (7.0-11.0); MONO # 0.4 (0.1-0.6); MONO % 5.2 % (1.0-6.0); RBC 5.21 10^6/uL (3.5-6.1); RED CELL DISTRIBUTION WIDTH 13.6 % (11.5-14.5); WHITE BLOOD COUNT 6.9 10^3/uL (4.5-11.0)
[2018-01-23 18:22] LABS: ALB/GLOB RATIO 1.4 (1.1-1.8); ALBUMIN 3.9 g/dL (3.0-4.8); BLOOD UREA NITROGEN 14 mg/dL (7-21); CALCIUM 8.2 mg/dL (8.4-10.5); GFR NON-AFRICAN AMERICAN > 60; INR 1.02; PARTIAL THROMBOPLASTIN TIME 25.4 Seconds (25.1-36.5); PROTHROMBIN TIME 11.6 SECONDS (9.4-12.5)
[2018-01-23 18:28] LABS: ALT/SGPT 40 U/L (7-56); AST/SGOT 35 U/L (17-59)
[2018-01-23 18:34] VITALS: PULSE 86; RESP 18; TEMP 98.2; O2SAT 98
--- NOTE | 2018-01-23 21:43 | ED PDOC ---
Arrival/HPI - General Chief Complaint: Alcohol Ingestion Time Seen by Provider: 01/23/18 17:45 Historian: Patient - History of Present Illness Narrative History of Present Illness (Text): 01/24/18 01:29 62yo male with pmhx of alcohol intoxication and hypertension bib EMS for alcohol intoxication. Patient states " I drink too much". Per the EMS patient complained of dizziness when he went to visit his neighbor and then the neighbor called EMS. They stated that pt however reports drinking alcohol . Patient states the alcohol : make me not feel good". He however denies any focal complaint. Denies chest pain, headache, dizziness, nausea, abdominal pain, back pain, SOB, diaphoresis, SI/HI, any other complaint. Past Medical History - Provider Review Nursing Documentation Reviewed: Yes - Infectious Disease Hx of Infectious Diseases: None - Cardiac Hx Cardiac Disorders: Yes Hx Hypertension: Yes - Pulmonary Hx Respiratory Disorders: No - Neurological Hx Neurological Disorder: No - HEENT Hx HEENT Disorder: Yes (EYE IRRITATION FROM DUST AT WORK) - Renal Hx Renal Disorder: No - Endocrine/Metabolic Hx Endocrine Disorders: No - Hematological/Oncological Hx Blood Disorders: No - Integumentary Hx Dermatological Disorder: No - Musculoskeletal/Rheumatological Hx Musculoskeletal Disorders: Yes (KNEE PAIN) - Gastrointestinal Hx Gastrointestinal Disorders: No - Genitourinary/Gynecological Hx Genitourinary Disorders: Yes Hx Prostate Problems: Yes (ELEVATED PSA/BPH) - Psychiatric Hx Psychophysiologic Disorder: No Hx Anxiety: No Hx Bipolar Disorder: No Hx Depression: No Hx Emotional Abuse: No Hx Hallucinations: No Hx Panic Disorder: No Hx Post Traumatic Stress Disorder: No Hx Psychosis: No Hx Physical Abuse: No Hx Schizophrenia: No Hx Sexual Abuse: No Hx Substance Use: No - Surgical History Hx Inguinal Hernia Repair: Yes (l) - Anesthesia Hx Anesthesia: Yes Hx Anesthesia Reactions: No Hx Malignant Hyperthermia: No - Suicidal Assessment Feels Threatened In Home Enviroment: No Family/Social History - Physician Review Nursing Documentation Reviewed: Yes Family/Social History: Unknown Family HX Smoking Status: Heavy Smoker > 10 Cigarettes Daily Hx Alcohol Use: Yes Hx Substance Use: No Hx Substance Use Treatment: No Allergies/Home Meds Allergies/Adverse Reactions: Allergies No Known Allergies Allergy (Verified 12/26/14 14:36) Home Medications: Home Meds Medication Instructions Recorded Confirmed Losartan/Hydrochlorothiazide 1 tab PO DAILY 03/29/17 08/17/17 [Losartan-Hctz 100-25 mg Tab] Review of Systems - Physician Review All systems were reviewed & negative as marked: Yes - Review of Systems Systems not reviewed;Unavailable: Intoxicated Constitutional: Normal Eyes: Normal ENT: Normal Respiratory: Normal Cardiovascular: Normal Gastrointestinal: Normal Genitourinary Male: Normal Musculoskeletal: Normal Skin: Normal Neurological: Normal Endocrine: Normal Hemo/Lymphatic: Normal Psychiatric: Normal Physical Exam - Physical Exam Physical Exam Limitations: Intoxication Vital Signs Reviewed: Yes Vital Signs Temp Pulse Resp BP Pulse Ox 01/23/18 18:34 98.2 F 86 18 141/81 98 Temperature: Afebrile Blood Pressure: Normal Pulse: Regular Respiratory Rate: Normal Appearance: Positive for: Well-Appearing, Non-Toxic, Comfortable Pain Distress: None Mental Status: Positive for: Alert and Oriented X 3 - Systems Exam Head: Present: Atraumatic, Normocephalic Pupils: Present: PERRL Extroacular Muscles: Present: EOMI Conjunctiva: Present: Normal Mouth: Present: Moist Mucous Membranes Neck: Present: Normal Range of Motion Respiratory/Chest: Present: Clear to Auscultation, Good Air Exchange. No: Respiratory Distress, Accessory Muscle Use Cardiovascular: Present: Regular Rate and Rhythm, Normal S1, S2. No: Murmurs Abdomen: No: Tenderness, Distention, Peritoneal Signs Back: Present: Normal Inspection Upper Extremity: Present: Normal Inspection. No: Cyanosis, Edema Lower Extremity: Present: Normal Inspection. No: Edema Neurological: Present: GCS=15, CN II-XII Intact, Speech Normal Skin: Present: Warm, Dry, Normal Color. No: Rashes Psychiatric: Present: Alert, Oriented x 3, Normal Insight, Normal Concentration Medical Decision Making ED Course and Treatment: 01/24/18 01:34 62yo male in ED for alcohol intoxication Labs alcohol level Monitor in ED for sobriety Pt's alcohol level was 286 He was observed in ED for couple of hours. He was noted sleeping calmly in ED Pt started ambulating in ED with steady gait after some hours. He was AAO x3 and in no distress. He asked for medication for headache and abdominal pain and it was given. On review he was smiling, requesting to be DC home. He denies SI/HI, any other complaint. He was stable for DC. - Lab Interpretations Lab Results: 01/23/18 18:03 10/29/18 18:03 Lab Results 01/23/18 18:03: Alcohol, Quantitative 286 H 01/23/18 18:03: Sodium 145, Potassium 4.2, Chloride 107, Carbon Dioxide 30, Anion Gap 12, BUN 14, Creatinine 0.7 L, Est GFR ( Amer) > 60, Est GFR (Non-Af Amer) > 60, Random Glucose 105, Calcium 8.2 L, Total Bilirubin 0.4, AST 35, ALT 40, Alkaline Phosphatase 61, Total Protein 6.6, Albumin 3.9, Globulin 2.7, Albumin/Globulin Ratio 1.4 01/23/18 18:03: PT 11.6, INR 1.02, APTT 25.4 01/23/18 18:03: WBC 6.9 D, RBC 5.21, Hgb 16.0, Hct 47.1, MCV 90.4 D, MCH 30.7, MCHC 34.0, RDW 13.6, Plt Count 223, MPV 9.1, Gran % 56.1, Lymph % (Auto) 35.9 H, [place] % (Auto) 5.2, Eos % (Auto) 2.5, Baso % (Auto) 0.3, Gran # 3.88, Lymph # (Auto) 2.5, [place] # (Auto) 0.4, Eos # (Auto) 0.2, Baso # (Auto) 0.02 - Medication Orders Current Medication Orders: Discontinued Medications Acetaminophen (Tylenol 325mg Tab) 650 mg PO STAT STA Stop: 01/23/18 21:29 Last Admin: 01/23/18 21:40 Dose: 650 mg MAR Pain/Vitals Document 01/23/18 21:40 SS (Rec: 01/23/18 21:40 SS [id number]) Pain Reassessment Is This A Pain ReAssessment? No Sleep Is patient sleeping during reassessment? No Presence of Pain Presence of Pain Yes Famotidine (Pepcid) 40 mg PO STAT STA Stop: 01/23/18 21:25 Last Admin: 01/23/18 21:39 Dose: 40 mg Disposition/Present on Arrival - Present on Arrival Any Indicators Present on Arrival: No History of DVT/PE: No History of Uncontrolled Diabetes: No Urinary Catheter: No History of Decub. Ulcer: No History Surgical Site Infection Following: None - Disposition Have Diagnosis and Disposition been Completed?: Yes Diagnosis: Alcohol intoxication Disposition: HOME/ ROUTINE Disposition Time: 21:45 Patient Plan: Discharge Condition: STABLE Discharge Instructions (ExitCare): Alcohol Abuse and Alcoholism (DC) Additional Instructions: Follow up with your Doctor Return to ED for any new or worsening symptoms Referrals: Alcoholics Anonymous [Outside] - Follow up with primary [facility] [Outside] - Follow up with primary Forms: [facility] ([place]udian)
[2018-01-23 22:47] VITALS: BP 129/87
== END 2018-01-23 22:47 | disposition home or self-care (01) ==
LOC: ED 17:34
DX: F10.129 Alcohol abuse with intoxication, unspecified (principal); Y90.8 Blood alcohol level of 240 mg/100 ml or more; I10 Essential (primary) hypertension; F17.210 Nicotine dependence, cigarettes, uncomplicated
CPT/HCPCS: 80053; 85025; 85610; 85730; 99283; G0480